=== PATIENT | female | born 1945 | race Caucasian/White ===

== ENCOUNTER → 2017-08-30 | Outpatient (CLI) | payer MEDICARE, OTHER ==
[~2017-08-30] MED LIST: ALBU3IS INH; ATOR20 PO; FLUSAL5005 INH; INSULANPEN; LORA2 PO; METO25ER PO; METPRE4DP PO; MONT10T PO; NAPR220 PO; Omeprazole20 M1; SERT100 PO; SULTRIDS PO; TIOT18 INH; Zithromax250 MG PO
== END | disposition home or self-care (01) ==
LOC: LAB EV 12:19 → LAB SHORT 12:19
DX: N39.0 Urinary tract infection, site not specified (principal); L02.219 Cutaneous abscess of trunk, unspecified
CPT/HCPCS: 87070; 87077; 87086; 87186; 87205

== ENCOUNTER 2018-02-19 08:23 | Emergency (ER) | payer MEDICARE, OTHER ==
[~2018-02-19] VITALS: Ht 162.6 cm; Wt 102.1 kg
[~2018-02-19 08:23] MED LIST changes: +METO25 PO; -METO25ER PO
[2018-02-19 08:45] LABS: BASOPHILS ABSOLUTE AUTO 0.08 K/mm3 (0.00-0.23); BASOPHILS PERCENT AUTO 1 % (0-2); EOSINOPHILS ABSOLUTE AUTO 0.22 K/mm3 (0.00-0.68); EOSINOPHILS PERCENT AUTO 2 % (0-6); Hematocrit 42.6 % (33.0-51.0); Hemoglobin 13.9 g/dL (11.5-16.0); IMMATURE GRAN ABSOLUTE AUTO 0.05 K/mm3 (0.00-0.10); IMMATURE GRAN PERCENT AUTO 0 % (0-1); LYMPHOCYTES ABSOLUTE AUTO 2.83 K/mm3 (0.84-5.20); LYMPHOCYTES PERCENT AUTO 23 % (21-46); MONOCYTES ABSOLUTE AUTO 0.94 K/mm3 (0.16-1.47); MONOCYTES PERCENT AUTO 8 % (4-13); Mean Corpuscular HGB 26.8 pg (26.0-34.0); Mean Corpuscular HGB Conc 32.6 g/dL (31.5-36.5); Mean Corpuscular Volume 82 fL (80-100); Mean Platelet Volume 9.8 fL (9.1-12.4); NEUTROPHILS ABSOLUTE AUTO 8.48 K/mm3 (1.96-9.15); NEUTROPHILS PERCENT AUTO 67 % (41-73); Platelet Count 298 K/mm3 (150-400); RDW Coefficient Variation 13.4 % (11.7-14.2); RDW Standard Deviation 40.2 fL (35.1-46.3); Red Blood Cell Count 5.18 M/mm3 (3.80-5.20)
[2018-02-19] MEDS ORDERED: CLOB.05TO TOP (08:58)
[2018-02-19] MEDS ORDERED: Acetaminophen-1 EAC1 PO (08:58)
[2018-02-19] MEDS ORDERED: METF500C PO (08:59)
[2018-02-19] MEDS ORDERED: NITR100CA PO (08:59)
[2018-02-19] MEDS ORDERED: SERT50 PO (08:59)
[2018-02-19 09:00] LABS: Alanine Aminotransfer (ALT/SGP 22 U/L (12-78); Albumin, Blood 3.1 g/dL (3.4-5.0); Albumin/Globulin Ratio 0.8 (0.8-1.8); Alk Phos 94 U/L (50-136); Anion Gap 8 mmol/L (6-16); Aspartate Aminotrans (AST/SGOT 13 U/L (12-37); Bilirubin, Total 0.4 mg/dL (0.1-1.0); Blood Urea Nitrogen 13 mg/dL (8-24); Bun/Creatinine Ratio 19.4 (12.0-20.0); CO2, Blood 28 mmol/L (21-32); Calcium, Blood 8.6 mg/dL (8.5-10.1); Chloride, Blood 106 mmol/L (98-108); Creatinine, Blood 0.67 mg/dL (0.40-1.00); Globulin, Blood 3.9 g/dL (2.2-4.0); Glomerular Filtration Rate >60 (60-); Glucose, Blood 130 mg/dL (70-99); Potassium, Blood 3.8 mmol/L (3.5-5.5); Sodium, Blood 142 mmol/L (136-145); Troponin I <0.015 ng/mL (0.000-0.040)
[2018-02-19] MEDS ORDERED: Ventolin/Prove6.7 GM INH (09:02)
== END 2018-02-19 12:07 | disposition home or self-care (01) ==
LOC: ER 08:23
PROVIDERS: Emergency Medicine
DX: R07.2 Precordial pain (principal); J98.4 Other disorders of lung; Z88.0 Allergy status to penicillin; Z88.8 Allergy status to other drugs, medicaments and biological substances; Z79.899 Other long term (current) drug therapy; J44.9 Chronic obstructive pulmonary disease, unspecified; E11.9 Type 2 diabetes mellitus without complications; F17.210 Nicotine dependence, cigarettes, uncomplicated
CPT/HCPCS: 71045; 80053; 83880; 84484; 85025; 93005; 93010; 96374; 99284-25; J1170

== ENCOUNTER → 2018-06-11 | Outpatient (CLI) | payer MEDICARE, OTHER ==
[~2018-06-11] MED LIST changes: +Acetaminophen-1 EAC1 PO; +Bupropion Xl150 MG PO; +CEFP200 PO; +CLOB.05TO TOP; +METF500C PO; +METR500 PO; +NITR100CA PO; +PROP10 PO; +SERT50 PO; +Ultram50 MG PO; +Ventolin/Prove6.7 GM INH
[2018-06-11 10:06] LABS: BASOPHILS ABSOLUTE AUTO 0.06 K/mm3 (0.00-0.23); BASOPHILS PERCENT AUTO 1 % (0-2); EOSINOPHILS ABSOLUTE AUTO 0.18 K/mm3 (0.00-0.68); EOSINOPHILS PERCENT AUTO 2 % (0-6); Hematocrit 43.3 % (33.0-51.0); Hemoglobin 14.4 g/dL (11.5-16.0); IMMATURE GRAN ABSOLUTE AUTO 0.04 K/mm3 (0.00-0.10); IMMATURE GRAN PERCENT AUTO 0 % (0-1); LYMPHOCYTES ABSOLUTE AUTO 2.32 K/mm3 (0.84-5.20); LYMPHOCYTES PERCENT AUTO 22 % (21-46); MONOCYTES ABSOLUTE AUTO 0.62 K/mm3 (0.16-1.47); MONOCYTES PERCENT AUTO 6 % (4-13); Mean Corpuscular HGB 26.8 pg (26.0-34.0); Mean Corpuscular HGB Conc 33.3 g/dL (31.5-36.5); Mean Corpuscular Volume 81 fL (80-100); Mean Platelet Volume 9.6 fL (9.1-12.4); NEUTROPHILS PERCENT AUTO 70 % (41-73); Platelet Count 291 K/mm3 (150-400); RDW Coefficient Variation 13.5 % (11.7-14.2); RDW Standard Deviation 39.2 fL (35.1-46.3); Red Blood Cell Count 5.38 M/mm3 (3.80-5.20); White Blood Cell Count 10.62 K/mm3 (4.00-11.30)
[2018-06-11 10:22] LABS: Alanine Aminotransfer (ALT/SGP 19 U/L (12-78); Albumin, Blood 3.1 g/dL (3.4-5.0); Albumin/Globulin Ratio 0.7 (0.8-1.8); Alk Phos 107 U/L (40-126); Anion Gap 8 mmol/L (6-16); Aspartate Aminotrans (AST/SGOT 10 U/L (12-37); Bilirubin, Total 0.3 mg/dL (0.1-1.0); Blood Urea Nitrogen 12 mg/dL (8-24); Bun/Creatinine Ratio 13.6 (12.0-20.0); CO2, Blood 28 mmol/L (21-32); Chloride, Blood 104 mmol/L (98-108); Creatinine, Blood 0.88 mg/dL (0.40-1.00); Globulin, Blood 4.2 g/dL (2.2-4.0); Glomerular Filtration Rate >60 (60-); Glucose, Blood 143 mg/dL (70-99); Potassium, Blood 3.7 mmol/L (3.5-5.5); Sodium, Blood 140 mmol/L (136-145); Total Protein, Blood 7.3 g/dL (6.4-8.2)
== END | disposition home or self-care (01) ==
LOC: LAB SHORT 10:02 → LAB EV 10:02
PROVIDERS: Family Medicine
DX: R10.9 Unspecified abdominal pain (principal)
CPT/HCPCS: 80053; 85025

== ENCOUNTER 2018-06-17 09:33 | Emergency (ER) | payer MEDICARE, OTHER ==
[~2018-06-17] VITALS: Ht 162.6 cm; Wt 102.1 kg
[~2018-06-17 09:33] MED LIST changes: -Bupropion Xl150 MG PO; -CEFP200 PO; -METR500 PO; -PROP10 PO; -Ultram50 MG PO
[2018-06-17] MEDS ORDERED: METR500 PO (09:46)
[2018-06-17] MEDS ORDERED: Bupropion Xl150 MG PO (09:47)
[2018-06-17] MEDS ORDERED: PROP10 PO (09:47)
[2018-06-17 10:20] LABS: BASOPHILS ABSOLUTE AUTO 0.08 K/mm3 (0.00-0.23); BASOPHILS PERCENT AUTO 1 % (0-2); EOSINOPHILS ABSOLUTE AUTO 0.07 K/mm3 (0.00-0.68); EOSINOPHILS PERCENT AUTO 0 % (0-6); Hematocrit 43.2 % (33.0-51.0); Hemoglobin 14.3 g/dL (11.5-16.0); IMMATURE GRAN ABSOLUTE AUTO 0.08 K/mm3 (0.00-0.10); IMMATURE GRAN PERCENT AUTO 1 % (0-1); LYMPHOCYTES ABSOLUTE AUTO 2.86 K/mm3 (0.84-5.20); LYMPHOCYTES PERCENT AUTO 18 % (21-46); MONOCYTES ABSOLUTE AUTO 0.99 K/mm3 (0.16-1.47); MONOCYTES PERCENT AUTO 6 % (4-13); Mean Corpuscular HGB 27.1 pg (26.0-34.0); Mean Corpuscular HGB Conc 33.1 g/dL (31.5-36.5); Mean Corpuscular Volume 82 fL (80-100); Mean Platelet Volume 9.6 fL (9.1-12.4); NEUTROPHILS ABSOLUTE AUTO 11.65 K/mm3 (1.96-9.15); NEUTROPHILS PERCENT AUTO 74 % (41-73); Platelet Count 303 K/mm3 (150-400); RDW Coefficient Variation 13.2 % (11.7-14.2); RDW Standard Deviation 39.2 fL (35.1-46.3); Red Blood Cell Count 5.28 M/mm3 (3.80-5.20); White Blood Cell Count 15.73 K/mm3 (4.00-11.30)
[2018-06-17 10:30] LABS: Alanine Aminotransfer (ALT/SGP 33 U/L (12-78); Albumin, Blood 3.1 g/dL (3.4-5.0); Albumin/Globulin Ratio 0.8 (0.8-1.8); Alk Phos 94 U/L (50-136); Anion Gap 9 mmol/L (6-16); Aspartate Aminotrans (AST/SGOT 24 U/L (12-37); Bilirubin, Total 0.4 mg/dL (0.1-1.0); Blood Urea Nitrogen 12 mg/dL (8-24); Bun/Creatinine Ratio 17.4 (12.0-20.0); CO2, Blood 26 mmol/L (21-32); Calcium, Blood 8.7 mg/dL (8.5-10.1); Chloride, Blood 105 mmol/L (98-108); Creatinine, Blood 0.69 mg/dL (0.40-1.00); Glomerular Filtration Rate >60 (60-); Glucose, Blood 142 mg/dL (70-99); Potassium, Blood 3.6 mmol/L (3.5-5.5); Sodium, Blood 140 mmol/L (136-145); Total Protein, Blood 7.1 g/dL (6.4-8.2)
[2018-06-17 10:40] LABS: Source, Urine Clean Catch
[2018-06-17 10:56] LABS: Appearance, Urine Hazy (Clear); Bilirubin, Urine Neg (Neg); Blood, Urine 5+ (Neg); Color, Urine Yellow (P-Yellow); Glucose Qualitative, Urine Neg (Neg); Ketones, Urine Neg (Neg); Leukocyte Esterase, Urine 1+ (Neg); Nitrite, Urine Neg (Neg); Protein, Urine 1+ (Neg); Specific Gravity, Urine 1.015 (1.003-1.022); Urobilinogen, Urine NORM (Normal)
[2018-06-17 11:54] LABS: Red Blood Cells, Urine 50-100 /hpf (0-2)
[2018-06-17 11:55] LABS: Bacteria Few /hpf; Squamous Epithelial Cells Not Seen /hpf (Few)
[2018-06-17] MEDS ORDERED: CEFP200 PO (12:17)
[2018-06-17] MEDS ORDERED: Ultram50 MG PO (12:17)
== END 2018-06-17 12:32 | disposition home or self-care (01) ==
LOC: ER 09:33
PROVIDERS: Emergency Medicine
DX: R31.9 Hematuria, unspecified (principal); J44.9 Chronic obstructive pulmonary disease, unspecified; E11.9 Type 2 diabetes mellitus without complications; F17.210 Nicotine dependence, cigarettes, uncomplicated; Z79.899 Other long term (current) drug therapy
CPT/HCPCS: 36415; 80053; 81001; 83690; 85025; 87086; 96361; 96374; 96375; 99284-25; J2405; J3010; J7030

== ENCOUNTER 2018-08-07 15:55 | Inpatient (IN) | payer MEDICARE, OTHER ==
[~2018-08-07] VITALS: Ht 162.6 cm; Wt 97.9 kg
[~2018-08-07 15:55] MED LIST changes: -ATOR20 PO; +CEFP200 PO; +METR500 PO; -MONT10T PO; -Omeprazole20 M1; +PROP10 PO; -SERT50 PO; -TIOT18 INH; +Ultram50 MG PO; -Ventolin/Prove6.7 GM INH
[2018-08-07 16:35] LABS: BASOPHILS ABSOLUTE AUTO 0.05 K/mm3 (0.00-0.23); BASOPHILS PERCENT AUTO 0 % (0-2); EOSINOPHILS PERCENT AUTO 0 % (0-6); Hematocrit 44.3 % (33.0-51.0); Hemoglobin 14.7 g/dL (11.5-16.0); IMMATURE GRAN ABSOLUTE AUTO 0.06 K/mm3 (0.00-0.10); IMMATURE GRAN PERCENT AUTO 1 % (0-1); LYMPHOCYTES ABSOLUTE AUTO 1.18 K/mm3 (0.84-5.20); LYMPHOCYTES PERCENT AUTO 9 % (21-46); MONOCYTES ABSOLUTE AUTO 1.27 K/mm3 (0.16-1.47); MONOCYTES PERCENT AUTO 10 % (4-13); Mean Corpuscular HGB 27.1 pg (26.0-34.0); Mean Corpuscular HGB Conc 33.2 g/dL (31.5-36.5); Mean Corpuscular Volume 82 fL (80-100); Mean Platelet Volume 9.5 fL (9.1-12.4); NEUTROPHILS ABSOLUTE AUTO 10.35 K/mm3 (1.96-9.15); NEUTROPHILS PERCENT AUTO 80 % (41-73); Platelet Count 260 K/mm3 (150-400); RDW Coefficient Variation 13.5 % (11.7-14.2); RDW Standard Deviation 40.2 fL (35.1-46.3); Red Blood Cell Count 5.42 M/mm3 (3.80-5.20); White Blood Cell Count 12.91 K/mm3 (4.00-11.30)
[2018-08-07 17:10] LABS: Alanine Aminotransfer (ALT/SGP 23 U/L (12-78); Albumin, Blood 3.4 g/dL (3.4-5.0); Albumin/Globulin Ratio 0.8 (0.8-1.8); Alk Phos 99 U/L (50-136); Anion Gap 9 mmol/L (6-16); Aspartate Aminotrans (AST/SGOT 17 U/L (12-37); Bilirubin, Total 0.7 mg/dL (0.1-1.0); Blood Urea Nitrogen 10 mg/dL (8-24); Bun/Creatinine Ratio 19.8 (12.0-20.0); CO2, Blood 26 mmol/L (21-32); Calcium, Blood 9.1 mg/dL (8.5-10.1); Chloride, Blood 99 mmol/L (98-108); Creatinine, Blood 0.51 mg/dL (0.40-1.00); Globulin, Blood 4.4 g/dL (2.2-4.0); Glomerular Filtration Rate >60 (60-); Glucose, Blood 173 mg/dL (70-99); Potassium, Blood 3.5 mmol/L (3.5-5.5); Sodium, Blood 134 mmol/L (136-145); Total Protein, Blood 7.8 g/dL (6.4-8.2)
[2018-08-07] MEDS ORDERED: **INCOMPLETE MED REC (18:37)
[2018-08-07] MEDS ORDERED: ALBU2.5V5 INH (18:39)
[2018-08-07] MEDS ORDERED: ATOR20 PO (18:41)
[2018-08-07] MEDS ORDERED: Bupropion Xl150 MG PO (18:41)
[2018-08-07] MEDS ORDERED: MONT10T PO (18:43)
[2018-08-07] MEDS ORDERED: Omeprazole20 M1 PO (18:43)
[2018-08-07] MEDS ORDERED: SERT50 PO (18:44)
[2018-08-07] MEDS ORDERED: TIOT18 INH (18:45)
[2018-08-07] MEDS ORDERED: Prinivil10 MG PO (18:48)
[2018-08-07] MEDS ORDERED: FLUT1DIS8 INH (19:11)
[2018-08-07] MEDS ORDERED: Inderal60 MG PO (19:12)
[2018-08-07] MEDS ORDERED: Nyamyc15 GM TOP (19:13)
[2018-08-07] MEDS ORDERED: Aspirin EC81 MG PO (19:14)
[2018-08-07] MEDS ORDERED: LOSARTAN POTAS100 MG PO (19:17)
[2018-08-07] MEDS ORDERED: FLUC150A PO (19:20)
[2018-08-07] MEDS ORDERED: LUMIGAN2.5 ML BOTHEYES (19:43)
--- NOTE | 2018-08-07 20:00 | NUR ---
Initial Visit: Palliative Care Consult for AD/POLST. Pt A&Ox4 and denies pain at this time. She reports her dyspnea has improved and rates severity at 2/7. Engaged in therapeutic conversation about goals of care. Pt reports that she lives at home with her daughter who is supportive of her needs. Pt reports that she is independent at home. She is of Muslim tr. Pt reports that her goal is for her breathing to improve and return to baseline and return home. Discussion was made about AD/POLST and Pt expresses interest in Advanced Directive. Educated Pt on AD in each area to be completed and meaning of life sustaining measures. Pt reports that she will complete AD after discussing with her daughter. Pt reports no other concerns at this time. Plan is to obtain copy of AD once completed. Will remain available
[2018-08-08 05:04] LABS: Hematocrit 40.1 % (33.0-51.0); Hemoglobin 13.3 g/dL (11.5-16.0); Mean Corpuscular HGB 26.9 pg (26.0-34.0); Mean Corpuscular HGB Conc 33.2 g/dL (31.5-36.5); Mean Corpuscular Volume 81 fL (80-100); Platelet Count 219 K/mm3 (150-400); RDW Coefficient Variation 13.5 % (11.7-14.2); RDW Standard Deviation 39.4 fL (35.1-46.3); Red Blood Cell Count 4.94 M/mm3 (3.80-5.20); White Blood Cell Count 7.07 K/mm3 (4.00-11.30)
--- NOTE | 2018-08-08 05:43 | NUR ---
SHIFT SUMMARY PT ADMITTED WITH COPD EXACERBATION, OXYGEN ON AT 2L/NC. PT WEARS O2 AT NIGHT BASELINE. ALERT AND ORIENTED. PT DYSPNEIC AT REST, SPEAKS IN SHORT SENTENCES. LUNG SOUNDS WITH EXP WHEEZING T/O. IVF'S INFUSING PER PUMP WITHOUT DIFFICULTY. PT STATES SHE IS INCONTINENT AT TIMES WITH COUGHING OF BOTH BOWEL AND BLADDER. USING BSC PER SELF. PT SLEPT WELL DURING THE NIGHT. NO ACUTE EVENTS NOTED WILL CONTINUE TO MONITOR.
[2018-08-08 05:46] LABS: Anion Gap 9 mmol/L (6-16); Blood Urea Nitrogen 12 mg/dL (8-24); Bun/Creatinine Ratio 22.5 (12.0-20.0); CO2, Blood 25 mmol/L (21-32); Calcium, Blood 8.6 mg/dL (8.5-10.1); Chloride, Blood 106 mmol/L (98-108); Creatinine, Blood 0.53 mg/dL (0.40-1.00); Glomerular Filtration Rate >60 (60-); Glucose, Blood 171 mg/dL (70-99); Potassium, Blood 3.6 mmol/L (3.5-5.5); Sodium, Blood 140 mmol/L (136-145)
[2018-08-08 11:25] LABS: Source, Urine Clean Catch
[2018-08-08 11:40] LABS: Bilirubin, Urine Neg (Neg); Blood, Urine 2+ (Neg); Glucose Qualitative, Urine Neg (Neg); Ketones, Urine Neg (Neg); Leukocyte Esterase, Urine Neg (Neg); Nitrite, Urine Pos (Neg); Protein, Urine Neg (Neg); Specific Gravity, Urine 1.015 (1.003-1.022); Urobilinogen, Urine NORM (Normal)
[2018-08-08 11:51] LABS: Appearance, Urine Clear (Clear); Color, Urine Yellow (P-Yellow)
[2018-08-08 11:52] LABS: Bacteria Many /hpf; Red Blood Cells, Urine 0-2 /hpf (0-2); Squamous Epithelial Cells Few /hpf (Few); White Blood Cells, Urine 0-2 /hpf (0-5)
--- NOTE | 2018-08-08 16:55 | NUR ---
Per admit trigger, I met with Chloe regarding an advanced directive. She was initially irritated to be "asked about this again." However, I easily gained rapport and she told me about her life. She is and lives with her dtr. She states that her children know what her wishes are and she did not see a need for an AD. She appears chronically ill and admits she's tired of this. Still, she beleives with medication, she will return to baseline. I will remain available.
--- NOTE | 2018-08-08 17:42 | NUR ---
PT IS ALERT AND ORIENTED AND COOPERATIVE WITH CARE. SHE CALLS APPROPRIATELY. SHE EXPERIENCED SOB THIS MORNING WALKING BACK FROM THE BATHROOM. SHE IS ON 3.5L O2 VIA NC. SHE WEARS 2L O2 VIA NC AT HOME. SHE BECOMES INCONTINENT OF BOWEL AND BLADDER WHEN COUGHING. ATTENDS IN PLACE. SHE IS INDEPENDEDNT IN HER ROOM. NO ACUTE CHANGES THIS SHIFT. WILL CONTINUE TO MONITOR.
--- NOTE | 2018-08-09 05:32 | NUR ---
SHIFT SUMMARY PT SLEPT WELL T/O THE NIGHT. DENIES C/O'S PAIN. OXYGEN REMAINS ON PER NC AT 2L. PT DYSPNEIC THIS AM, RT NOTIFIED AND PRN BREATHING TREATMENT GIVEN. NO ACUTE EVENTS DURING THE NIGHT, WILL CONTINUE TO MONITOR.
--- NOTE | 2018-08-09 09:07 | NUR ---
ASSUMED CARE OF PT- BEDSIDE REPORT COMPLETE WITH NIGHT YOLANDE GREEN. PT ALERT AND ORIENTED AND INDEMENDENT IN THE ROOM PER REPORT. SPOKE TO PT SHE SAT TRIPOD ON THE EOB BREATHING HEAVILY, SHE STATED SHE WAS PREPARING TO GO TO THE BATHROOM. SPOKE TO HER ABOUT THE RISK OF FALLING IF SHE WALKED TOO FAR AND BECAME SOB AND GOT LIGHT HEADED, PT WILLING TO USE BEDSIDE COMODE, FOR SAFETY. SPOKE TO DR CASTREJON ABOUT PT EXTREME SOB AND THE EVENT PREVIOUSLY DESCRIBED, HE IS SEEING THE PT NOW.
--- NOTE | 2018-08-09 19:48 | NUR ---
SHIFT SUMMARY- PT STILL SHORT OF BREATH, SHE HAS HAD MULTIPLE BREATHING Tx T/O THE SHIFT. WHEN PT IS SLEEPING HER RESP RATE IS 24. PT CAN NOT SPEAK A SENTENCE WITHOUT PAUSING FOR SEVERAL BREATHS. BEDISDE REPORT COMPLETE WITH NIGHT RN MUSTAPHA. PT STATED DURRING REPORT SHE IS STARTING TO GET CRANKY AND MAY NEED A DOSE OF PRN ATIVAN. PT HAS HER CALL LIGHT IN REACH SHE IS INDEPENDENT TO THE BSC AND THE CHAIR, D/T SOB STAFF HAVE ADVISED HER TO ALLOW FOR ADEQUATE REST PERIODS OR WALKING SHORTER DISTANCES UNTIL SHE IS FEELING LESS SOB. PT AGREED AND HAS BEEN USEING THE BSC T/O THE SHIFT.
--- NOTE | 2018-08-10 00:23 | NUR ---
RESPIRATORY PANEL COLLECTED AND SENT TO LAB
[2018-08-10 02:44] LABS: Adenovirus Not Detected (NOT DETECT); Bordetella pertussis Not Detected (NOT DETECT); Chlamydophila pneumoniae Not Detected (NOT DETECT); Coronavirus 229E Not Detected (NOT DETECT); Coronavirus HKU1 Not Detected (NOT DETECT); Coronavirus NL63 Not Detected (NOT DETECT); Coronavirus OC43 Not Detected (NOT DETECT); Human Metapneumovirus Not Detected (NOT DETECT); Human Rhinovirus/Enterovirus Not Detected (NOT DETECT); Influenza A Not Detected (NOT DETECT); Influenza A/2009-H1 Not Detected (NOT DETECT); Influenza A/H1 Not Detected (NOT DETECT); Influenza A/H3 Detected (NOT DETECT); Influenza B Not Detected (NOT DETECT); Mycoplasma pneumoniae Not Detected (NOT DETECT); Parainfluenza Virus 1 Not Detected (NOT DETECT); Parainfluenza Virus 2 Not Detected (NOT DETECT); Parainfluenza Virus 3 Not Detected (NOT DETECT); Parainfluenza Virus 4 Not Detected (NOT DETECT); Respiratory Syncytial Virus Not Detected (NOT DETECT)
--- NOTE | 2018-08-10 04:35 | NUR ---
SHIFT SUMMARY PATIENT HAD NO ACUTE CHANGES OBSERVED THIS SHIFT. AXO X 4 AND INDEPENDENT IN THE ROOM. PATIENT HAD COUGHING EVENT AND TYLENOL #3 GIVEN PER EMAR. PATIENT REPORTS REDUCED COUGH. IV SOLU-MEDROL GIVEN PER EMAR. BREATHING TX BY RT. PIV REMAINS INTACT. RESPIRATORY PANEL SENT TO LAB AND POSITIVE FOR INFLUENZA, DROPLET PRECAUTIONS. ON 2L O2 NC. CBG 219. CALL LIGHT IN REACH. BED IN LOWEST POSITION. WILL CONTINUE TO MONITOR UNTIL DAY SHIFT NURSE ASSUMES CARE.
[2018-08-10 05:04] LABS: BASOPHILS ABSOLUTE AUTO 0.02 K/mm3 (0.00-0.23); BASOPHILS PERCENT AUTO 0 % (0-2); EOSINOPHILS ABSOLUTE AUTO 0.01 K/mm3 (0.00-0.68); EOSINOPHILS PERCENT AUTO 0 % (0-6); Hematocrit 41.1 % (33.0-51.0); Hemoglobin 13.2 g/dL (11.5-16.0); IMMATURE GRAN ABSOLUTE AUTO 0.11 K/mm3 (0.00-0.10); IMMATURE GRAN PERCENT AUTO 1 % (0-1); LYMPHOCYTES ABSOLUTE AUTO 0.66 K/mm3 (0.84-5.20); LYMPHOCYTES PERCENT AUTO 6 % (21-46); MONOCYTES ABSOLUTE AUTO 0.34 K/mm3 (0.16-1.47); MONOCYTES PERCENT AUTO 3 % (4-13); Mean Corpuscular HGB 27.2 pg (26.0-34.0); Mean Corpuscular HGB Conc 32.1 g/dL (31.5-36.5); Mean Platelet Volume 9.7 fL (9.1-12.4); NEUTROPHILS ABSOLUTE AUTO 10.28 K/mm3 (1.96-9.15); NEUTROPHILS PERCENT AUTO 90 % (41-73); Platelet Count 210 K/mm3 (150-400); RDW Coefficient Variation 13.6 % (11.7-14.2); RDW Standard Deviation 42.1 fL (35.1-46.3); Red Blood Cell Count 4.86 M/mm3 (3.80-5.20); White Blood Cell Count 11.42 K/mm3 (4.00-11.30)
[2018-08-10 05:06] LABS: Mean Corpuscular Volume 85 fL (80-100)
[2018-08-10 05:11] LABS: Alanine Aminotransfer (ALT/SGP 22 U/L (12-78); Albumin, Blood 2.9 g/dL (3.4-5.0); Albumin/Globulin Ratio 0.8 (0.8-1.8); Alk Phos 70 U/L (50-136); Anion Gap 7 mmol/L (6-16); Aspartate Aminotrans (AST/SGOT 16 U/L (12-37); Bilirubin, Total 0.3 mg/dL (0.1-1.0); Blood Urea Nitrogen 16 mg/dL (8-24); Bun/Creatinine Ratio 26.9 (12.0-20.0); CO2, Blood 26 mmol/L (21-32); Calcium, Blood 8.5 mg/dL (8.5-10.1); Chloride, Blood 106 mmol/L (98-108); Globulin, Blood 3.6 g/dL (2.2-4.0); Glomerular Filtration Rate >60 (60-); Glucose, Blood 223 mg/dL (70-99); Magnesium, Blood 2.2 mg/dL (1.6-2.4); Phosphorus, Blood 3.5 mg/dL (2.5-4.9); Potassium, Blood 3.5 mmol/L (3.5-5.5); Sodium, Blood 139 mmol/L (136-145); Total Protein, Blood 6.5 g/dL (6.4-8.2)
--- NOTE | 2018-08-10 19:23 | NUR ---
SHIFT SUMMARY- PT HAS SHOWN SOME IMPROVEMENT TODAY, SHE IS MORE MOBILE AND ABLE TO DO MORE PHYSICALLY WITHOUT GETTING BADLY WINDED YESTERDAY. PT HAD A FULL SHOWER WITH ASSISTANCE FROM THE SEMIAUTOMATIC TAPER OPERATOR. PT IN ISOLATION FOR FLU, SPOKE TO DR RUIZ STARTED TODAY TWICE A DAY FOR FIVE DAYS. SOLUMEDROL REDUCED TO TWICE A DAY. PT STILL VERY SHAKEY, BREATHING Tx RECIEVED T/O THE SHIFT. PT HAS HER CALL LIGHT IN REACH AND CALLS APPROPRIATELY. MEDICATED FOR COUGH WITH TYLENOL 3 JUST BEFORE SHIFT CHANGE.
--- NOTE | 2018-08-11 04:39 | NUR ---
SHIFT SUMMARY PATIENT HAD NO ACUTE CHANGES OBSERVED THIS SHIFT. AXO X4 AND ONE ASSIST TO BR AND INDEPENDENT AROUND BEDSIDE. ON 2L O2 NC. DENIES PAIN AND N/V. PATIENT REPORTS FEELING BETTER THIS SHIFT. CBG 252. BREATHING TX BY RT X2. NIZORAL TOPICAL CREME APPLIED TO PANNUS. PATIENT REPORTS SHE DID NOT WANT ATIVAN THIS SHIFT. TAKES MEDICATION WHOLE WITH WATER. CALL LIGHT IN REACH. BED IN LOWEST POSITION. WILL CONTINUE TO MONITOR UNTIL DAY SHIFT NURSE ASSUMES CARE.
--- NOTE | 2018-08-11 08:25 | NUR ---
PT BP WAS ELEVATED ON MORNING VITALS, GAVE MORNING BP MEDS EARLY WILL REASSESS AND CALL DR WITH RESULT FROM 0900 VITALS.
--- NOTE | 2018-08-11 18:45 | NUR ---
SHIFT SUMMARY- PT HAD AN EVENT THIS EVENING AT [facility], HEART WAS RACING IN THE 140S-150S, CALLED LUCÍA AND RECIEVED AN ORDER FOR TELE. PT PLACED ON TELE AND BACK INTO BED RATE AFIB IN THE 130'S ON AVERAGE. EKG DONE SHOWED AFIB WITH RVR. DR CASTREJON PLACED ORDER FOR STAT 30MG CARDIZEM AND DIGOXIN PB, CHANGED SCHEDULED DOSE OF CARDIZEM TO 120MG BID THIS PUT THE DOSE OF THIS AT THE SAME TIME ALL THE OTHER CARDIAC MEDS. GAVE STAT 30MG PO CARDIZEM AND HUNG DIGOXIN PER DR FRANKEL WAITED 30 MINUTES AND MEDICATED WITH THE SCHEDULED DOSE OF 120MG CARDIZEM. PER PCU DAY HABILITATION SPECIALIST KUSH PT HR IS AFIB AT 122 NOW. WILL PASS THIS ON IN BEDSIDE REPORT.
--- NOTE | 2018-08-11 22:21 | NUR ---
PATIENT REPORTS FEELING BETTER. SPINDLE TESTER REPORTS AFIB 94 DOWN FROM HR 120-130 RIGHT BEFORE SHIFT CHANGE. PATIENT REPORTS TREMORS IN CHEST RESOLVED FROM EVENT. CALL LIGHT IN REACH.
--- NOTE | 2018-08-12 04:00 | NUR ---
SHIFT SUMMARY SOLE RUFFER REPORTS AFIB 88 DOWN FROM AFIB 94 AT START OF SHIFT. PATIENT HAD NO ACUTE EVENTS SINCE BEFORE SHIFT CHANGE. AXO X4 AND INDEPENDENT AROUND BED AND ONE ASSIST TO BR. CBG 232. ON 2L O2 NC. PIV REMAINS INTACT. SOLU-MEDROL GIVEN PER EMAR. BREATHING TX BY RT. PATIENT REPORTS FEELING BETTER SINCE EVENT, WITH RESOLVED CHEST TREMORS. SEE DAY SHIFT SUMMARY NOTE. DROPLET PRECAUTIONS. CALL LIGHT IN REACH. BED IN LOWEST POSITION. WILL CONTINUE TO MONITOR UNTIL DAY SHIFT NURSE ASSUMES CARE.
[2018-08-12 05:31] LABS: BASOPHILS ABSOLUTE AUTO 0.02 K/mm3 (0.00-0.23); BASOPHILS PERCENT AUTO 0 % (0-2); EOSINOPHILS PERCENT AUTO 0 % (0-6); Hematocrit 44.7 % (33.0-51.0); Hemoglobin 14.4 g/dL (11.5-16.0); IMMATURE GRAN ABSOLUTE AUTO 0.15 K/mm3 (0.00-0.10); IMMATURE GRAN PERCENT AUTO 1 % (0-1); LYMPHOCYTES ABSOLUTE AUTO 1.18 K/mm3 (0.84-5.20); LYMPHOCYTES PERCENT AUTO 9 % (21-46); MONOCYTES ABSOLUTE AUTO 0.59 K/mm3 (0.16-1.47); MONOCYTES PERCENT AUTO 5 % (4-13); Mean Corpuscular HGB 26.7 pg (26.0-34.0); Mean Corpuscular HGB Conc 32.2 g/dL (31.5-36.5); Mean Corpuscular Volume 83 fL (80-100); Mean Platelet Volume 10.1 fL (9.1-12.4); NEUTROPHILS ABSOLUTE AUTO 10.78 K/mm3 (1.96-9.15); NEUTROPHILS PERCENT AUTO 85 % (41-73); Platelet Count 258 K/mm3 (150-400); RDW Coefficient Variation 13.4 % (11.7-14.2); RDW Standard Deviation 40.6 fL (35.1-46.3); Red Blood Cell Count 5.39 M/mm3 (3.80-5.20); White Blood Cell Count 12.72 K/mm3 (4.00-11.30)
[2018-08-12 05:46] LABS: Alanine Aminotransfer (ALT/SGP 27 U/L (12-78); Albumin, Blood 2.9 g/dL (3.4-5.0); Anion Gap 6 mmol/L (6-16); Aspartate Aminotrans (AST/SGOT 10 U/L (12-37); Blood Urea Nitrogen 13 mg/dL (8-24); Bun/Creatinine Ratio 24.6 (12.0-20.0); CO2, Blood 29 mmol/L (21-32); Calcium, Blood 8.2 mg/dL (8.5-10.1); Chloride, Blood 104 mmol/L (98-108); Creatinine, Blood 0.53 mg/dL (0.40-1.00); Glomerular Filtration Rate >60 (60-); Glucose, Blood 225 mg/dL (70-99); Magnesium, Blood 2.3 mg/dL (1.6-2.4); Phosphorus, Blood 2.7 mg/dL (2.5-4.9); Potassium, Blood 3.5 mmol/L (3.5-5.5); Sodium, Blood 139 mmol/L (136-145)
[2018-08-12 05:48] LABS: Albumin/Globulin Ratio 0.8 (0.8-1.8); Alk Phos 68 U/L (50-136); Bilirubin, Total 0.4 mg/dL (0.1-1.0); Globulin, Blood 3.5 g/dL (2.2-4.0); Total Protein, Blood 6.4 g/dL (6.4-8.2)
--- NOTE | 2018-08-12 09:00 | NUR ---
PT PLEASANT A/O SITTING IN BED. DENIES PAIN. H/R IRREGULAR, NO MURMER NOTED. PER TELE: AFIB AT AVERAGING 106. LUNGS COARSE AND WHEEZY T/O. ON 2L 02. RESP EASY UNLABORED. BT HYPO. LAST BM 3-4 DAYS. VOIDS PER BATHROOM. SBA IN ROOM. BED IN LOW POSITION, CALL LITE IN REACH, CALLS APPROP
--- NOTE | 2018-08-12 11:27 | NUR ---
PERMISSION FOR CARE PT GAVE THIS MEAT STRINGER PERMISSION TO PROVIDE CARE 08/12/18.
--- NOTE | 2018-08-12 19:17 | NUR ---
pt pleasant today denies pain. has had family in to see today. lungs coarse and wheezy today. pt states feeling better slowly . no other concerna at this froilan. bed in low position, call lite in reach. calls approp
--- NOTE | 2018-08-13 05:50 | NUR ---
*SHIFT SUMMARY* PT IS ALERT AND ORIENTED. PT ON TELE A-FIB 60-80BPM PER LIFE TRAINER AT 0540 THIS AM. PATIENT ON 2LNC. SBA TO BSC. PATIENT FELL ASLEEP AROUND 2100 AND STATED SHE WANTED TO SLEEP. PT REFUSED BREATHING TX LATER IN THE NIGHT. USES CALL LIGHT APPROPRIATELY. BED LOWERED AND LOCKED. VITALS STABLE.
--- NOTE | 2018-08-13 17:26 | NUR ---
PT IS ALERT AND ORIENTED AND COOPERATIVE WITH CARE. SHE CALLS APPROPRIATELY. SHE IS A ONE PERSON ASSIST TO THE RESTROOM. SHE TRANSFERS TO THE BSC INDEPENDENTLY. SHE REPORTS LESS SOB TODAY THAN BEFORE. SHE IS ON DROPLET PRECAUTIONS FOR INFLUENZA A. NO ACUTE CHANGES TODAY. WILL CONTINUE TO MONITOR.
--- NOTE | 2018-08-14 05:35 | NUR ---
SHIFT SUMMARY NO ACUTE CHANGES THIS SHIFT. PT REPORTS THAT SHE IS AT HER BASELINE FOR RESPIRATORY STATUS AND THAT SHE CONTINUES TO HAVE SOME MILD SOB BUT THAT THIS IS NORMAL FOR HER. PT REPORTS THAT SHE REMAINS HERE WAITING TO BE CONSULTED BY CARDIOLOGY DUE TO NEW AFIB. PT ON TELEMETRY, AFIB IN THE 80'S THIS EVENING. SOME REDNESS UNDER PANNUS, CREAM APPLIED. PT REPORTS SHE HAS NOT HAD A BOWEL MOVEMENT SINCE HER ADMISSION TO THE HOSPITAL, APPROX 5-6 DAYS. SHE FEELS THOUGH SHE WILL BE ABLE TO HAVE ONE SOON. PT DENIES PAIN OR DISCOMFORT. SLEPT WELL WHEN NOT BEING WOKEN BY STAFF. VSS. WILL CONTINUE TO MONITOR AND REPORT TO DAY RN.
--- NOTE | 2018-08-14 09:32 | NUR ---
PATIENT WAS OFFERED A SHOWER AND DECLINED SHE TOOK ONE YESTERDAY WELL SHE IS WAITING TO SEE IF SHE IS ABLE TO GO HOME TODAY AND WILL TAKE A BATH WHEN SHE GETS HOME.
--- NOTE | 2018-08-14 11:14 | NUR ---
CARDIOLOGY CONSULT CALLED IN WITH DR. MELCHOR TODAY AT 1030 08/14/[address] SOLIMAN.
[2018-08-14] MEDS ORDERED: OSEL75CA PO (13:20)
[2018-08-14] MEDS ORDERED: ELIQUIS5 MG PO (13:20)
[2018-08-14] MEDS ORDERED: DILT120 PO (13:20)
[2018-08-14] MEDS ORDERED: GLIP5 PO (13:21)
[2018-08-14] MEDS ORDERED: METPRE2 PO (13:22)
[2018-08-14] MEDS ORDERED: DOXY100 PO (13:23)
--- NOTE | 2018-08-14 14:03 | NUR ---
RN WALKED WITH PATIENT AROUND THE HOSPITAL ROOM WHILE MONITORING HER OXYGEN SATURATION WITHOUT WEARING OXYGEN. HER SATS REMAINED BETWEEN 89-92%. RESPIRATORY THERAPY CONTACTED, AND DETERMINED HOME O2 CONSULTATION IS NOT NEEDED. IV REMOVED FROM PT'S RIGHT ARM, PRESSURE HELD FOR 5 MINUTES, AND WRAPPED WITH GAUZE AND COBAND. PT ASSISTED TO AUTOMOBILE BY WHEELCHAIR. PT DRIVEN HOME BY HER DAUGHTER. PT DISCHARGED AT 1350 ON 08/14/18.
--- NOTE | 2018-08-14 15:20 | NUR ---
RESPIRATORY THERAPY REQUESTED FOR HOME 02 EVAL TO BE DC'D DUE TO RN AT BEDSIDE COMPLETING AN EVALUATION WHERE PT SATS STAYED ABOVED 89% WITH EXERTION AND DOES NOT QUALIFY. HOME 02 EVAL NOT COMPLETED.
== END 2018-08-14 13:54 | disposition home or self-care (01) | DRG 871 ==
LOC: ER 15:55 → MEDS 18:32
PROVIDERS: Hospitalist; Nurse Practitioner Acute Care; Physician Assistant; ADMIT Hospitalist
DX: A41.89 Other specified sepsis (principal); J96.21 Acute and chronic respiratory failure with hypoxia; J44.1 Chronic obstructive pulmonary disease with (acute) exacerbation; B37.89 Other sites of candidiasis; I50.32 Chronic diastolic (congestive) heart failure; J09.X2 Influenza due to identified novel influenza A virus with other respiratory manifestations; J20.8 Acute bronchitis due to other specified organisms; J45.909 Unspecified asthma, uncomplicated; E11.9 Type 2 diabetes mellitus without complications; Z79.4 Long term (current) use of insulin; K21.9 Gastro-esophageal reflux disease without esophagitis; F32.9 Major depressive disorder, single episode, unspecified; Z87.440 Personal history of urinary (tract) infections; F17.210 Nicotine dependence, cigarettes, uncomplicated; I11.0 Hypertensive heart disease with heart failure; I48.2 Chronic atrial fibrillation; Z79.01 Long term (current) use of anticoagulants
CPT/HCPCS: 36415; 71046; 80048; 80053; 81001; 82947; 83036; 83605; 83735; 83880; 84100; 84145; 85025; 85027; 87040; 87077; 87086; 87186; 87486; 87581; 87633; 87798; 93005; 93010; 93306; 94640; 94644; 94760; 96374; 96375; 99285-25; J0456; J0696; J1160; J1650; J1940; J2920; J2930; J3480; J7030; J7050

== ENCOUNTER 2018-09-25 05:46 | Day surgery (SDC) | payer MEDICARE, OTHER ==
[~2018-09-25] VITALS: Ht 165.1 cm; Wt 98.0 kg
[~2018-09-25 05:46] MED LIST changes: +**INCOMPLETE MED REC; +ALBU2.5V5 INH; +ATOR20 PO; +Aspirin EC81 MG PO; +Bupropion Xl150 MG PO; +DILT120 PO; +DOXY100 PO; +ELIQUIS5 MG PO; +FLUC150A PO; +FLUT1DIS8 INH; +GLIP5 PO; +Inderal60 MG PO; +LOSARTAN POTAS100 MG PO; +LUMIGAN2.5 ML BOTHEYES; +METPRE2 PO; +MONT10T PO; +Nyamyc15 GM TOP; +OSEL75CA PO; +Omeprazole20 M1 PO; +Prinivil10 MG PO; +SERT50 PO; +TIOT18 INH
--- NOTE | 2018-09-25 07:31 | NUR ---
PT TOLERATES CARDIOVERSION WELL. VSS. NADN. PT AND DAUGHTER VERBALIZES UNDERSTANDING WRITTEN AND VERBAL ORDERS. PT WILL DC TO HOME VIA WC BY ESCORT. PT SINUS RHTYHM ON MONITOR.
== END 2018-09-25 08:00 | disposition home or self-care (01) ==
LOC: MHTC 05:46
DX: I48.1 Persistent atrial fibrillation (principal); J44.9 Chronic obstructive pulmonary disease, unspecified; I10 Essential (primary) hypertension; E11.9 Type 2 diabetes mellitus without complications; E78.00 Pure hypercholesterolemia, unspecified; F17.210 Nicotine dependence, cigarettes, uncomplicated; Z88.1 Allergy status to other antibiotic agents; Z88.8 Allergy status to other drugs, medicaments and biological substances; Z79.899 Other long term (current) drug therapy; Z79.02 Long term (current) use of antithrombotics/antiplatelets
CPT/HCPCS: 92960; 93005; 93010; 99152; J2250; J3010; J7040

== ENCOUNTER 2018-11-01 12:49 | Emergency (ER) | payer MEDICARE, OTHER ==
[~2018-11-01] VITALS: Ht 162.6 cm; Wt 98.9 kg
[2018-11-01] MEDS ORDERED: Amiodarone HCl200 MG PO (13:08)
[2018-11-01 13:46] LABS: BASOPHILS ABSOLUTE AUTO 0.08 K/mm3 (0.00-0.23); BASOPHILS PERCENT AUTO 1 % (0-2); EOSINOPHILS PERCENT AUTO 2 % (0-6); Hematocrit 38.8 % (33.0-51.0); Hemoglobin 12.1 g/dL (11.5-16.0); IMMATURE GRAN ABSOLUTE AUTO 0.04 K/mm3 (0.00-0.10); IMMATURE GRAN PERCENT AUTO 0 % (0-1); LYMPHOCYTES ABSOLUTE AUTO 2.38 K/mm3 (0.84-5.20); LYMPHOCYTES PERCENT AUTO 22 % (21-46); MONOCYTES ABSOLUTE AUTO 0.76 K/mm3 (0.16-1.47); MONOCYTES PERCENT AUTO 7 % (4-13); Mean Corpuscular HGB 26.9 pg (26.0-34.0); Mean Corpuscular HGB Conc 31.2 g/dL (31.5-36.5); Mean Corpuscular Volume 86 fL (80-100); Mean Platelet Volume 9.4 fL (9.1-12.4); NEUTROPHILS ABSOLUTE AUTO 7.37 K/mm3 (1.96-9.15); NEUTROPHILS PERCENT AUTO 68 % (41-73); Platelet Count 290 K/mm3 (150-400); RDW Coefficient Variation 14.6 % (11.7-14.2); RDW Standard Deviation 46.9 fL (35.1-46.3); Red Blood Cell Count 4.49 M/mm3 (3.80-5.20); White Blood Cell Count 10.83 K/mm3 (4.00-11.30)
[2018-11-01 14:13] LABS: Alanine Aminotransfer (ALT/SGP 18 U/L (12-78); Albumin/Globulin Ratio 0.9 (0.8-1.8); Alk Phos 87 U/L (50-136); Anion Gap 6 mmol/L (6-16); Aspartate Aminotrans (AST/SGOT 6 U/L (12-37); Bilirubin, Total 0.3 mg/dL (0.1-1.0); Blood Urea Nitrogen 12 mg/dL (8-24); Bun/Creatinine Ratio 18.6 (12.0-20.0); CO2, Blood 26 mmol/L (21-32); Calcium, Blood 8.5 mg/dL (8.5-10.1); Chloride, Blood 111 mmol/L (98-108); Creatinine, Blood 0.65 mg/dL (0.40-1.00); Globulin, Blood 3.4 g/dL (2.2-4.0); Glomerular Filtration Rate >60 (60-); Glucose, Blood 124 mg/dL (70-99); Potassium, Blood 3.7 mmol/L (3.5-5.5); Sodium, Blood 143 mmol/L (136-145); Total Protein, Blood 6.4 g/dL (6.4-8.2); Troponin I <0.015 ng/mL (0.000-0.040)
== END 2018-11-01 15:17 | disposition home or self-care (01) ==
LOC: ER 12:49
PROVIDERS: Emergency Medicine
DX: I48.91 Unspecified atrial fibrillation (principal); Z88.0 Allergy status to penicillin; Z88.1 Allergy status to other antibiotic agents; Z88.8 Allergy status to other drugs, medicaments and biological substances; Z79.899 Other long term (current) drug therapy; J44.9 Chronic obstructive pulmonary disease, unspecified; E11.9 Type 2 diabetes mellitus without complications; F17.210 Nicotine dependence, cigarettes, uncomplicated
CPT/HCPCS: 80053; 84484; 85025; 93005; 93010; 93225; 93226; 99284-25

== ENCOUNTER 2019-05-07 10:32 | Day surgery (SDC) | payer MEDICARE, OTHER ==
[~2019-05-07] VITALS: Ht 162.6 cm; Wt 97.8 kg
[~2019-05-07 10:32] MED LIST changes: +Amiodarone HCl200 MG PO; +Catapres-Tts 11 EACH; +Flecainide Ace150 MG
--- NOTE | 2019-05-07 12:44 | NUR ---
05/07/19 1244 ALLEY PASCAL 1 POKE UPPER RIGHT ARM VALVE 2 TRY AC VALVE RIGHT ARM 3 TRY GOOD LEFT AC
== END 2019-05-07 14:01 | disposition home or self-care (01) ==
LOC: ORSCSDS 10:32
PROVIDERS: Internal Medicine Gastroenterology
PROC: 0DBH8ZX Excision of Cecum, Via Natural or Artificial Opening Endoscopic, Diagnostic (ICD-10-PCS; principal; 2019-05-07 12:45)
PROC: 0DBN8ZX Excision of Sigmoid Colon, Via Natural or Artificial Opening Endoscopic, Diagnostic (ICD-10-PCS; principal; 2019-05-07 12:45)
PROC: 0DBK8ZX Excision of Ascending Colon, Via Natural or Artificial Opening Endoscopic, Diagnostic (ICD-10-PCS; principal; 2019-05-07 12:45)
PROC: 0DBL8ZX Excision of Transverse Colon, Via Natural or Artificial Opening Endoscopic, Diagnostic (ICD-10-PCS; principal; 2019-05-07 12:45)
DX: Z12.11 Encounter for screening for malignant neoplasm of colon (principal); Z86.010 Personal history of colon polyps; D12.3 Benign neoplasm of transverse colon; D12.0 Benign neoplasm of cecum; D12.2 Benign neoplasm of ascending colon; K63.5 Polyp of colon; K64.8 Other hemorrhoids; K64.4 Residual hemorrhoidal skin tags; I10 Essential (primary) hypertension; E11.9 Type 2 diabetes mellitus without complications; E78.5 Hyperlipidemia, unspecified; J44.9 Chronic obstructive pulmonary disease, unspecified; G47.33 Obstructive sleep apnea (adult) (pediatric); F17.210 Nicotine dependence, cigarettes, uncomplicated; E66.01 Morbid (severe) obesity due to excess calories; Z68.36 Body mass index [BMI] 36.0-36.9, adult; Z79.899 Other long term (current) drug therapy
CPT/HCPCS: 82947; 88305; J2001; J2704

== ENCOUNTER → 2019-07-07 | Outpatient (CLI) | payer MEDICARE, OTHER | END | disposition home or self-care (01) | LOC: LAB SHORT 11:05 → LAB EV 11:05 | DX: R30.0 Dysuria (principal) | CPT/HCPCS: 87086 ==

== ENCOUNTER 2019-07-30 10:24 | Inpatient (IN) | payer MEDICARE, OTHER ==
[~2019-07-30] VITALS: Ht 162.6 cm; Wt 95.0 kg
[~2019-07-30 10:24] MED LIST changes: -Flecainide Ace150 MG; +Flecainide Ace150 MG PO; -SERT50 PO
[2019-07-30 11:10] LABS: PCO2 Arterial 35.8 mmHg (35-45); PO2 Arterial 81.1 mmHg (80-100); pH Blood Arterial 7.46 (7.35-7.45)
[2019-07-30 11:13] LABS: BASOPHILS ABSOLUTE AUTO 0.07 K/mm3 (0.00-0.23); BASOPHILS PERCENT AUTO 1 % (0-2); EOSINOPHILS ABSOLUTE AUTO 0.15 K/mm3 (0.00-0.68); EOSINOPHILS PERCENT AUTO 1 % (0-6); Hemoglobin 13.4 g/dL (11.5-16.0); IMMATURE GRAN ABSOLUTE AUTO 0.07 K/mm3 (0.00-0.10); IMMATURE GRAN PERCENT AUTO 1 % (0-1); LYMPHOCYTES ABSOLUTE AUTO 2.29 K/mm3 (0.84-5.20); LYMPHOCYTES PERCENT AUTO 19 % (21-46); MONOCYTES ABSOLUTE AUTO 0.74 K/mm3 (0.16-1.47); MONOCYTES PERCENT AUTO 6 % (4-13); Mean Corpuscular HGB 26.1 pg (26.0-34.0); Mean Corpuscular HGB Conc 32.7 g/dL (31.5-36.5); Mean Corpuscular Volume 80 fL (80-100); Mean Platelet Volume 9.6 fL (9.1-12.4); NEUTROPHILS ABSOLUTE AUTO 9.03 K/mm3 (1.96-9.15); NEUTROPHILS PERCENT AUTO 73 % (41-73); Platelet Count 275 K/mm3 (150-400); RDW Standard Deviation 43.6 fL (35.1-46.3); Red Blood Cell Count 5.13 M/mm3 (3.80-5.20); White Blood Cell Count 12.35 K/mm3 (4.00-11.30)
[2019-07-30] MEDS ORDERED: CLON.1 PO (11:25)
[2019-07-30 11:39] LABS: Alanine Aminotransfer (ALT/SGP 17 U/L (12-78); Albumin, Blood 3.2 g/dL (3.4-5.0); Albumin/Globulin Ratio 0.7 (0.8-1.8); Alk Phos 101 U/L (50-136); Anion Gap 3 mmol/L (6-16); Aspartate Aminotrans (AST/SGOT 20 U/L (12-37); Bilirubin, Total 0.4 mg/dL (0.1-1.0); Blood Urea Nitrogen 10 mg/dL (8-24); Bun/Creatinine Ratio 16.7 (12.0-20.0); CO2, Blood 27 mmol/L (21-32); Calcium, Blood 9.1 mg/dL (8.5-10.1); Chloride, Blood 110 mmol/L (98-108); Globulin, Blood 4.3 g/dL (2.2-4.0); Glomerular Filtration Rate >60 (60-); Glucose, Blood 110 mg/dL (70-99); Potassium, Blood 4.2 mmol/L (3.5-5.5); Sodium, Blood 140 mmol/L (136-145); Total Protein, Blood 7.5 g/dL (6.4-8.2)
[2019-07-30 13:37] LABS: Adenovirus Not Detected (NOT DETECT); Bordetella pertussis Not Detected (NOT DETECT); Chlamydophila pneumoniae Not Detected (NOT DETECT); Coronavirus 229E Not Detected (NOT DETECT); Coronavirus HKU1 Not Detected (NOT DETECT); Coronavirus NL63 Not Detected (NOT DETECT); Coronavirus OC43 Not Detected (NOT DETECT); Human Metapneumovirus Not Detected (NOT DETECT); Human Rhinovirus/Enterovirus Not Detected (NOT DETECT); Influenza A Not Detected (NOT DETECT); Influenza A/2009-H1 Not Detected (NOT DETECT); Influenza A/H1 Not Detected (NOT DETECT); Influenza A/H3 Not Detected (NOT DETECT); Influenza B Not Detected (NOT DETECT); Mycoplasma pneumoniae Not Detected (NOT DETECT); Parainfluenza Virus 1 Not Detected (NOT DETECT); Parainfluenza Virus 2 Not Detected (NOT DETECT); Parainfluenza Virus 3 Not Detected (NOT DETECT); Parainfluenza Virus 4 Not Detected (NOT DETECT); Respiratory Syncytial Virus Not Detected (NOT DETECT)
[2019-07-31 05:07] LABS: BASOPHILS ABSOLUTE AUTO 0.01 K/mm3 (0.00-0.23); BASOPHILS PERCENT AUTO 0 % (0-2); EOSINOPHILS PERCENT AUTO 0 % (0-6); Hemoglobin 12.5 g/dL (11.5-16.0); IMMATURE GRAN ABSOLUTE AUTO 0.13 K/mm3 (0.00-0.10); IMMATURE GRAN PERCENT AUTO 1 % (0-1); LYMPHOCYTES ABSOLUTE AUTO 0.91 K/mm3 (0.84-5.20); LYMPHOCYTES PERCENT AUTO 6 % (21-46); MONOCYTES ABSOLUTE AUTO 0.31 K/mm3 (0.16-1.47); MONOCYTES PERCENT AUTO 2 % (4-13); Mean Corpuscular HGB Conc 32.9 g/dL (31.5-36.5); Mean Corpuscular Volume 79 fL (80-100); Mean Platelet Volume 9.7 fL (9.1-12.4); NEUTROPHILS ABSOLUTE AUTO 12.75 K/mm3 (1.96-9.15); NEUTROPHILS PERCENT AUTO 90 % (41-73); Platelet Count 254 K/mm3 (150-400); RDW Coefficient Variation 14.6 % (11.7-14.2); RDW Standard Deviation 42.2 fL (35.1-46.3); Red Blood Cell Count 4.81 M/mm3 (3.80-5.20); White Blood Cell Count 14.11 K/mm3 (4.00-11.30)
[2019-07-31 05:46] LABS: Alanine Aminotransfer (ALT/SGP 15 U/L (12-78); Albumin, Blood 2.9 g/dL (3.4-5.0); Albumin/Globulin Ratio 0.7 (0.8-1.8); Alk Phos 91 U/L (50-136); Anion Gap 5 mmol/L (6-16); Aspartate Aminotrans (AST/SGOT 12 U/L (12-37); Bilirubin, Total 0.5 mg/dL (0.1-1.0); Blood Urea Nitrogen 16 mg/dL (8-24); Bun/Creatinine Ratio 29.3 (12.0-20.0); CO2, Blood 26 mmol/L (21-32); Calcium, Blood 9.2 mg/dL (8.5-10.1); Chloride, Blood 109 mmol/L (98-108); Creatinine, Blood 0.55 mg/dL (0.40-1.00); Globulin, Blood 3.9 g/dL (2.2-4.0); Glomerular Filtration Rate >60 (60-); Glucose, Blood 199 mg/dL (70-99); Potassium, Blood 3.5 mmol/L (3.5-5.5); Sodium, Blood 140 mmol/L (136-145); Total Protein, Blood 6.8 g/dL (6.4-8.2)
--- NOTE | 2019-07-31 07:20 | NUR ---
SHIFT SUMMARY PATIENT ALERT AND ORIENTED. IV IN LEFT ARM PATENT AND INFUSING WITH NORMAL SALINE AT 75 ML/HR. PATIENT WORE 2.5 LITERS O2 VIA NASAL CANULA OVERNIGHT TO AID WITH HER SLEEP APNEA. BED IN LOWEST POSITION WITH WHEELS LOCKED. CALL LIGHT WITHIN REACH. REPORT GIVEN TO ONCOMING RN.
--- NOTE | 2019-07-31 17:00 | NUR ---
SHIFT SUMMARY PT A&O X4 AND INDEPENTENT IN THE ROOM, PT ON RA AND ONLY REQUIRES 2.5L OF N/C AT NIGHT. PT CESAR PAIN DURING THIS SHIFT. PT TOLORATED MEALS THIS SHIFT. PT HAS CALL LIGHT WITH IN REACH AND WILL REPORT NOC RN.
[2019-08-01 05:01] LABS: BASOPHILS ABSOLUTE AUTO 0.02 K/mm3 (0.00-0.23); BASOPHILS PERCENT AUTO 0 % (0-2); EOSINOPHILS PERCENT AUTO 0 % (0-6); Hematocrit 38.9 % (33.0-51.0); Hemoglobin 12.8 g/dL (11.5-16.0); IMMATURE GRAN ABSOLUTE AUTO 0.24 K/mm3 (0.00-0.10); IMMATURE GRAN PERCENT AUTO 1 % (0-1); LYMPHOCYTES ABSOLUTE AUTO 1.07 K/mm3 (0.84-5.20); LYMPHOCYTES PERCENT AUTO 5 % (21-46); MONOCYTES ABSOLUTE AUTO 0.67 K/mm3 (0.16-1.47); MONOCYTES PERCENT AUTO 3 % (4-13); Mean Corpuscular HGB 26.2 pg (26.0-34.0); Mean Corpuscular HGB Conc 32.9 g/dL (31.5-36.5); Mean Corpuscular Volume 80 fL (80-100); Mean Platelet Volume 9.2 fL (9.1-12.4); NEUTROPHILS ABSOLUTE AUTO 20.03 K/mm3 (1.96-9.15); NEUTROPHILS PERCENT AUTO 91 % (41-73); Platelet Count 292 K/mm3 (150-400); RDW Coefficient Variation 14.9 % (11.7-14.2); RDW Standard Deviation 43.1 fL (35.1-46.3); Red Blood Cell Count 4.88 M/mm3 (3.80-5.20); White Blood Cell Count 22.03 K/mm3 (4.00-11.30)
--- NOTE | 2019-08-01 06:41 | NUR ---
SHIFT SUMMARY PATIENT ALERT AND ORIENTED, INDEPENDENT GETTING UP AND WALKING AROUND HER ROOM. SHE IS CURRENTLY ON 2.5 LITERS O2 VIA NASAL CANULA. IV PATENT AND INFUSING WITH NORMAL SALINE AT 75 ML/HR. IV IN RIGHT FOREARM REMOVED AND NEW IV PLACED IN HER LEFT SHOULDER BY MARÍA ELENA LINDSEY. BED IN LOWEST POSITION WITH WHEELS LOCKED. CALL LIGHT AND BELONGINGS WITHIN REACH. REPORT GIVEN TO ONCISABEL LANIER.
[2019-08-01] MEDS ORDERED: BENZ100A PO (16:25)
[2019-08-01] MEDS ORDERED: MUCUS ER600 M1 PO (16:27)
[2019-08-01] MEDS ORDERED: ALBU90OI INH (16:28)
[2019-08-01] MEDS ORDERED: Doxycycline Mo100 M1 PO (16:30)
[2019-08-01] MEDS ORDERED: METPRE2 PO (16:30)
--- NOTE | 2019-08-01 16:58 | NUR ---
PT DISCHARGED PT DISCHARGED WITH NO CHANGES IN ASSESSMENT PRIOR TO DC. PT & DAUGHTER EDUCATED ON DC INSTRUCTIONS AND FOLLOW UP APPOINTMENTS. BOTH DENIES NEED FOR FURTHER EDUCATION. PT WHEELED OUT BY AIDE AND DRIVEN HOME BY DAUGHTER.
== END 2019-08-01 16:47 | disposition home or self-care (01) | DRG 191 ==
LOC: ER 10:24 → MEDS 14:05
PROVIDERS: Emergency Medicine; Student in an Organized Health Care Education/Training Program; ADMIT Family Medicine
DX: J44.1 Chronic obstructive pulmonary disease with (acute) exacerbation (principal); I48.20 Chronic atrial fibrillation, unspecified; I50.32 Chronic diastolic (congestive) heart failure; I11.0 Hypertensive heart disease with heart failure; E78.5 Hyperlipidemia, unspecified; K21.9 Gastro-esophageal reflux disease without esophagitis; G47.33 Obstructive sleep apnea (adult) (pediatric); E11.9 Type 2 diabetes mellitus without complications; R91.8 Other nonspecific abnormal finding of lung field; F17.200 Nicotine dependence, unspecified, uncomplicated; Z88.1 Allergy status to other antibiotic agents; Z88.0 Allergy status to penicillin; Z88.8 Allergy status to other drugs, medicaments and biological substances; Z79.899 Other long term (current) drug therapy
CPT/HCPCS: 0099U; 36415; 36600; 71045; 80053; 82803; 82947; 85025; 93005; 93010; 94640; 94760; 96374; 99285-25; A9270; A9270-GY; J2920; J2930; J7030

== ENCOUNTER → 2021-06-16 | Outpatient (CLI) | payer MEDICARE, OTHER ==
[~2021-06-16] MED LIST changes: +ALBU90OI INH; +BENZ100A PO; +CLON.1 PO; +Doxycycline Mo100 M1 PO; +MUCUS ER600 M1 PO
[2021-06-16 15:06] LABS: BASOPHILS ABSOLUTE AUTO 0.04 K/mm3 (0.00-0.23); BASOPHILS PERCENT AUTO 1 % (0-2); EOSINOPHILS ABSOLUTE AUTO 0.09 K/mm3 (0.00-0.68); EOSINOPHILS PERCENT AUTO 1 % (0-6); IMMATURE GRAN ABSOLUTE AUTO 0.03 K/mm3 (0.00-0.10); IMMATURE GRAN PERCENT AUTO 1 % (0-1); LYMPHOCYTES ABSOLUTE AUTO 0.68 K/mm3 (0.84-5.20); LYMPHOCYTES PERCENT AUTO 10 % (21-46); MONOCYTES ABSOLUTE AUTO 0.68 K/mm3 (0.16-1.47); MONOCYTES PERCENT AUTO 10 % (4-13); Mean Corpuscular HGB 25.5 pg (26.0-34.0); Mean Corpuscular HGB Conc 32.5 g/dL (31.5-36.5); Mean Corpuscular Volume 79 fL (80-100); Mean Platelet Volume 9.4 fL (9.1-12.4); NEUTROPHILS PERCENT AUTO 77 % (41-73); Platelet Count 235 K/mm3 (150-400); RDW Coefficient Variation 15.1 % (11.7-14.2); RDW Standard Deviation 43.2 fL (35.1-46.3); Red Blood Cell Count 5.09 M/mm3 (3.80-5.20); White Blood Cell Count 6.62 K/mm3 (4.00-11.30)
[2021-06-16 15:20] LABS: Alanine Aminotransfer (ALT/SGP 21 U/L (12-78); Albumin, Blood 3.2 g/dL (3.4-5.0); Alk Phos 104 U/L (40-126); Anion Gap 10 mmol/L (6-16); Aspartate Aminotrans (AST/SGOT 9 U/L (12-37); Bilirubin, Total 0.3 mg/dL (0.1-1.0); Blood Urea Nitrogen 9 mg/dL (8-24); Bun/Creatinine Ratio 12.7 (12.0-20.0); CO2, Blood 28 mmol/L (21-32); Calcium, Blood 8.9 mg/dL (8.5-10.1); Chloride, Blood 103 mmol/L (98-108); Creatinine, Blood 0.71 mg/dL (0.40-1.00); Globulin, Blood 3.3 g/dL (2.2-4.0); Glomerular Filtration Rate >60 (60-); Glucose, Blood 95 mg/dL (70-99); Potassium, Blood 3.8 mmol/L (3.5-5.5); Sodium, Blood 141 mmol/L (136-145); Total Protein, Blood 6.5 g/dL (6.4-8.2)
== END | disposition home or self-care (01) ==
LOC: LAB SHORT 14:59
PROVIDERS: Physician Assistant
DX: R06.00 Dyspnea, unspecified (principal)
CPT/HCPCS: 80053; 83880; 84484; 85025

== ENCOUNTER → 2021-09-02 | Outpatient (CLI) | payer MEDICARE, OTHER | LOC: LAB SHORT 07:36 → PLD 07:36 | DX: Z03.89 Encounter for observation for other suspected diseases and conditions ruled out (principal) | CPT/HCPCS: 88342 ==

== ENCOUNTER 2021-10-24 11:16 | Emergency (ER) | payer MEDICARE, OTHER ==
[~2021-10-24] VITALS: Ht 162.6 cm; Wt 91.2 kg
[2021-10-24] MEDS ORDERED: Bactrim Ds Tab1 EACH PO (11:54)
[2021-10-24] MEDS ORDERED: CEPH500 PO (11:54)
== END 2021-10-24 12:00 | disposition home or self-care (01) ==
LOC: ER 11:16
DX: L03.116 Cellulitis of left lower limb (principal); L02.416 Cutaneous abscess of left lower limb; I10 Essential (primary) hypertension; J44.9 Chronic obstructive pulmonary disease, unspecified; E11.9 Type 2 diabetes mellitus without complications; K21.9 Gastro-esophageal reflux disease without esophagitis; F32.A Depression, unspecified; F17.210 Nicotine dependence, cigarettes, uncomplicated; Z88.0 Allergy status to penicillin; Z88.1 Allergy status to other antibiotic agents; Z88.8 Allergy status to other drugs, medicaments and biological substances; Z79.01 Long term (current) use of anticoagulants; Z79.899 Other long term (current) drug therapy
CPT/HCPCS: 99281

== ENCOUNTER 2022-01-18 10:54 | Emergency (ER) | payer MEDICARE, OTHER ==
[~2022-01-18] VITALS: Ht 162.6 cm; Wt 93.4 kg
[~2022-01-18 10:54] MED LIST changes: +Bactrim Ds Tab1 EACH PO; +CEPH500 PO
[2022-01-18] MEDS ORDERED: Norco 5-325 Ta1 EACH PO (11:42)
== END 2022-01-18 12:50 | disposition home or self-care (01) ==
LOC: ER 10:54
DX: L02.31 Cutaneous abscess of buttock (principal); J44.9 Chronic obstructive pulmonary disease, unspecified; E11.9 Type 2 diabetes mellitus without complications; I10 Essential (primary) hypertension; K21.9 Gastro-esophageal reflux disease without esophagitis; F17.210 Nicotine dependence, cigarettes, uncomplicated; Z88.0 Allergy status to penicillin; Z88.1 Allergy status to other antibiotic agents; Z79.84 Long term (current) use of oral hypoglycemic drugs; Z79.52 Long term (current) use of systemic steroids; Z79.899 Other long term (current) drug therapy; Z79.01 Long term (current) use of anticoagulants
CPT/HCPCS: 10061; 87070; 87075; 87076; 87205; 99283-25; A9270

== ENCOUNTER 2022-09-30 11:12 | Emergency (ER) | payer MEDICARE, OTHER ==
[~2022-09-30] VITALS: Ht 165.1 cm; Wt 92.5 kg
[~2022-09-30 11:12] MED LIST changes: +Flagyl500 MG PO; +Norco 5-325 Ta1 EACH PO
[2022-09-30 11:59] LABS: BASOPHILS ABSOLUTE AUTO 0.06 K/mm3 (0.00-0.23); BASOPHILS PERCENT AUTO 1 % (0-2); EOSINOPHILS ABSOLUTE AUTO 0.18 K/mm3 (0.00-0.68); EOSINOPHILS PERCENT AUTO 2 % (0-6); Hematocrit 38.8 % (33.0-51.0); Hemoglobin 12.5 g/dL (11.5-16.0); IMMATURE GRAN ABSOLUTE AUTO 0.03 K/mm3 (0.00-0.10); IMMATURE GRAN PERCENT AUTO 0 % (0-1); LYMPHOCYTES ABSOLUTE AUTO 2.05 K/mm3 (0.84-5.20); LYMPHOCYTES PERCENT AUTO 22 % (21-46); MONOCYTES ABSOLUTE AUTO 0.57 K/mm3 (0.16-1.47); MONOCYTES PERCENT AUTO 6 % (4-13); Mean Corpuscular HGB 26.2 pg (26.0-34.0); Mean Corpuscular HGB Conc 32.2 g/dL (31.5-36.5); Mean Corpuscular Volume 81 fL (80-100); Mean Platelet Volume 9.8 fL (9.1-12.4); NEUTROPHILS ABSOLUTE AUTO 6.39 K/mm3 (1.96-9.15); NEUTROPHILS PERCENT AUTO 69 % (41-73); Platelet Count 278 K/mm3 (150-400); RDW Coefficient Variation 13.6 % (11.7-14.2); RDW Standard Deviation 40.4 fL (35.1-46.3); Red Blood Cell Count 4.78 M/mm3 (3.80-5.20); White Blood Cell Count 9.28 K/mm3 (4.00-11.30)
[2022-09-30 12:18] LABS: Albumin/Globulin Ratio 0.8 (0.8-1.8); Bilirubin, Total 0.3 mg/dL (0.1-1.0); Bun/Creatinine Ratio 19.8 (12.0-20.0); Creatinine, Blood 0.66 mg/dL (0.40-1.00); Globulin, Blood 3.7 g/dL (2.2-4.0); Potassium, Blood 3.7 mmol/L (3.5-5.5); Total Protein, Blood 6.7 g/dL (6.4-8.2)
[2022-09-30] MEDS ORDERED: DOXY100 PO (14:14)
[2022-09-30] MEDS ORDERED: DEXA2 PO (14:14)
[2022-09-30 15:00] VITALS: BP 122/64
== END 2022-09-30 15:17 | disposition home or self-care (01) ==
LOC: ER 11:12
PROVIDERS: Student in an Organized Health Care Education/Training Program
DX: J44.1 Chronic obstructive pulmonary disease with (acute) exacerbation (principal); R55 Syncope and collapse; Z88.0 Allergy status to penicillin; Z88.1 Allergy status to other antibiotic agents; Z88.8 Allergy status to other drugs, medicaments and biological substances; Z79.899 Other long term (current) drug therapy; E11.9 Type 2 diabetes mellitus without complications; I10 Essential (primary) hypertension; K21.9 Gastro-esophageal reflux disease without esophagitis; F17.210 Nicotine dependence, cigarettes, uncomplicated
CPT/HCPCS: 36415; 71045; 80053; 83880; 84484; 85025; 93005; 93010; 94640; 94664; 99285-25; A9270; J7030

== ENCOUNTER → 2023-01-19 | Outpatient (CLI) | payer MEDICARE, OTHER ==
[~2023-01-19] MED LIST changes: +DEXA2 PO
[2023-01-19 14:37] LABS: BASOPHILS ABSOLUTE AUTO 0.06 K/mm3 (0.00-0.23); BASOPHILS PERCENT AUTO 1 % (0-2); EOSINOPHILS ABSOLUTE AUTO 0.12 K/mm3 (0.00-0.68); EOSINOPHILS PERCENT AUTO 1 % (0-6); Hematocrit 40.6 % (33.0-51.0); Hemoglobin 12.8 g/dL (11.5-16.0); IMMATURE GRAN ABSOLUTE AUTO 0.04 K/mm3 (0.00-0.10); IMMATURE GRAN PERCENT AUTO 0 % (0-1); LYMPHOCYTES ABSOLUTE AUTO 1.85 K/mm3 (0.84-5.20); LYMPHOCYTES PERCENT AUTO 16 % (21-46); MONOCYTES ABSOLUTE AUTO 0.81 K/mm3 (0.16-1.47); MONOCYTES PERCENT AUTO 7 % (4-13); Mean Corpuscular HGB 24.2 pg (26.0-34.0); Mean Corpuscular HGB Conc 31.5 g/dL (31.5-36.5); Mean Corpuscular Volume 77 fL (80-100); Mean Platelet Volume 10.4 fL (9.1-12.4); NEUTROPHILS ABSOLUTE AUTO 8.71 K/mm3 (1.96-9.15); NEUTROPHILS PERCENT AUTO 75 % (41-73); Platelet Count 348 K/mm3 (150-400); RDW Coefficient Variation 15.6 % (11.7-14.2); RDW Standard Deviation 43.4 fL (35.1-46.3); Red Blood Cell Count 5.29 M/mm3 (3.80-5.20); White Blood Cell Count 11.59 K/mm3 (4.00-11.30)
[2023-01-19 14:44] LABS: Alanine Aminotransfer (ALT/SGP 21 U/L (12-78); Albumin, Blood 3.5 g/dL (3.4-5.0); Albumin/Globulin Ratio 0.8 (0.8-1.8); Alk Phos 109 U/L (50-136); Anion Gap 4 mmol/L (6-16); Aspartate Aminotrans (AST/SGOT 8 U/L (12-37); Bilirubin, Total 0.4 mg/dL (0.1-1.0); Blood Urea Nitrogen 22 mg/dL (8-24); Bun/Creatinine Ratio 30.4 (12.0-20.0); CHOL/HDL RATIO 4.1; CO2, Blood 29 mmol/L (21-32); Calcium, Blood 9.3 mg/dL (8.5-10.1); Chloride, Blood 106 mmol/L (98-108); Cholesterol 183 mg/dL (50-200); Creatinine, Blood 0.72 mg/dL (0.40-1.00); Globulin, Blood 4.4 g/dL (2.2-4.0); Glomerular Filtration Rate 86 (60-); Glucose, Blood 127 mg/dL (70-99); HDL Cholesterol 45 mg/dL (>39); LDL/HDL RATIO 2.3; Low Density Lipoprotein Chol 105 mg/dL (0-110); Potassium, Blood 3.6 mmol/L (3.5-5.5); Sodium, Blood 139 mmol/L (136-145); Total Protein, Blood 7.9 g/dL (6.4-8.2); Triglycerides 164 mg/dL (30-160); Very Low Density Lipoprot Chol 32 mg/dL (6-32)
[2023-01-19 15:38] LABS: Creatinine, Urine Random 9.48 mg/dL (27.00-270.00)
[2023-01-19 15:53] LABS: Microalb/Creat Ratio UR, Rand Unable to Calculate mg/g (0.000-30.000); Microalbumin, Random Urine <5.000 mg/L (0.000-20.000)
== END | disposition home or self-care (01) ==
LOC: LAB SHORT 12:23 → LAB 12:23
PROVIDERS: Physician Assistant Medical
DX: E78.2 Mixed hyperlipidemia (principal); E11.9 Type 2 diabetes mellitus without complications
CPT/HCPCS: 80053; 80061; 82043; 82570; 83036; 85025

== ENCOUNTER 2023-02-05 14:11 | Emergency (ER) | payer MEDICARE, OTHER ==
[~2023-02-05] VITALS: Ht 162.6 cm; Wt 92.5 kg
[2023-02-05] MEDS ORDERED: LOSA50 PO (14:26)
[2023-02-05] MEDS ORDERED: SPIRONOLACTONE25 MG PO (14:28)
[2023-02-05] MEDS ORDERED: SOAANZ20 M3 PO (14:29)
[2023-02-05 14:38] LABS: BASOPHILS ABSOLUTE AUTO 0.08 K/mm3 (0.00-0.23); BASOPHILS PERCENT AUTO 1 % (0-2); EOSINOPHILS ABSOLUTE AUTO 0.21 K/mm3 (0.00-0.68); EOSINOPHILS PERCENT AUTO 2 % (0-6); Hematocrit 37.8 % (33.0-51.0); Hemoglobin 12.1 g/dL (11.5-16.0); IMMATURE GRAN ABSOLUTE AUTO 0.03 K/mm3 (0.00-0.10); IMMATURE GRAN PERCENT AUTO 0 % (0-1); LYMPHOCYTES PERCENT AUTO 20 % (21-46); MONOCYTES ABSOLUTE AUTO 0.88 K/mm3 (0.16-1.47); MONOCYTES PERCENT AUTO 8 % (4-13); Mean Corpuscular HGB 24.1 pg (26.0-34.0); Mean Corpuscular Volume 75 fL (80-100); Mean Platelet Volume 9.7 fL (9.1-12.4); NEUTROPHILS ABSOLUTE AUTO 7.76 K/mm3 (1.96-9.15); NEUTROPHILS PERCENT AUTO 70 % (41-73); Platelet Count 346 K/mm3 (150-400); RDW Coefficient Variation 15.4 % (11.7-14.2); RDW Standard Deviation 41.9 fL (35.1-46.3); Red Blood Cell Count 5.02 M/mm3 (3.80-5.20); White Blood Cell Count 11.16 K/mm3 (4.00-11.30)
[2023-02-05 14:49] LABS: Albumin, Blood 3.2 g/dL (3.4-5.0); Albumin/Globulin Ratio 0.9 (0.8-1.8); Bilirubin, Total 0.2 mg/dL (0.1-1.0); Calcium, Blood 8.7 mg/dL (8.5-10.1); Creatinine, Blood 0.84 mg/dL (0.40-1.00); Globulin, Blood 3.6 g/dL (2.2-4.0); Potassium, Blood 3.8 mmol/L (3.5-5.5); Total Protein, Blood 6.8 g/dL (6.4-8.2)
[2023-02-05 17:34] VITALS: BP 125/81
== END 2023-02-05 17:38 | disposition home or self-care (01) ==
LOC: ER 14:11
PROVIDERS: Emergency Medicine
DX: R07.9 Chest pain, unspecified (principal); Z88.0 Allergy status to penicillin; Z88.8 Allergy status to other drugs, medicaments and biological substances; Z88.1 Allergy status to other antibiotic agents; Z79.899 Other long term (current) drug therapy; J44.9 Chronic obstructive pulmonary disease, unspecified; E11.9 Type 2 diabetes mellitus without complications; I11.0 Hypertensive heart disease with heart failure; K21.9 Gastro-esophageal reflux disease without esophagitis; I48.91 Unspecified atrial fibrillation; I50.30 Unspecified diastolic (congestive) heart failure; G47.33 Obstructive sleep apnea (adult) (pediatric); F17.210 Nicotine dependence, cigarettes, uncomplicated
CPT/HCPCS: 71046; 80053; 83880; 84484; 85025; 93005; 93010; 99285-25

== ENCOUNTER 2023-09-30 13:08 | Emergency (ER) | payer MEDICARE, OTHER ==
[~2023-09-30] VITALS: Ht 162.6 cm; Wt 94.8 kg
[~2023-09-30 13:08] MED LIST changes: +LOSA50 PO; +SOAANZ20 M3 PO; +SPIRONOLACTONE25 MG PO
[2023-09-30 13:45] LABS: BASOPHILS PERCENT AUTO 1 % (0-2); EOSINOPHILS ABSOLUTE AUTO 0.25 K/mm3 (0.00-0.68); EOSINOPHILS PERCENT AUTO 2 % (0-6); Hematocrit 36.8 % (33.0-51.0); Hemoglobin 11.9 g/dL (11.5-16.0); IMMATURE GRAN ABSOLUTE AUTO 0.06 K/mm3 (0.00-0.10); IMMATURE GRAN PERCENT AUTO 0 % (0-1); LYMPHOCYTES ABSOLUTE AUTO 2.47 K/mm3 (0.84-5.20); LYMPHOCYTES PERCENT AUTO 18 % (21-46); MONOCYTES ABSOLUTE AUTO 0.91 K/mm3 (0.16-1.47); MONOCYTES PERCENT AUTO 7 % (4-13); Mean Corpuscular HGB Conc 32.3 g/dL (31.5-36.5); Mean Corpuscular Volume 81 fL (80-100); Mean Platelet Volume 9.8 fL (9.1-12.4); NEUTROPHILS ABSOLUTE AUTO 9.72 K/mm3 (1.96-9.15); NEUTROPHILS PERCENT AUTO 72 % (41-73); Platelet Count 316 K/mm3 (150-400); RDW Coefficient Variation 14.8 % (11.7-14.2); RDW Standard Deviation 43.4 fL (35.1-46.3); Red Blood Cell Count 4.57 M/mm3 (3.80-5.20); White Blood Cell Count 13.51 K/mm3 (4.00-11.30)
[2023-09-30 14:03] LABS: Albumin, Blood 2.9 g/dL (3.4-5.0); Albumin/Globulin Ratio 0.7 (0.8-1.8); Bilirubin, Total 0.3 mg/dL (0.1-1.0); Calcium, Blood 8.8 mg/dL (8.5-10.1); Creatinine, Blood 0.79 mg/dL (0.40-1.00); Potassium, Blood 3.5 mmol/L (3.5-5.5); Total Protein, Blood 6.9 g/dL (6.4-8.2)
[2023-09-30 16:00] VITALS: BP 132/84
== END 2023-09-30 16:16 | disposition home or self-care (01) ==
LOC: ER 13:08
PROVIDERS: Emergency Medicine
DX: R07.9 Chest pain, unspecified (principal); J44.9 Chronic obstructive pulmonary disease, unspecified; E11.9 Type 2 diabetes mellitus without complications; K21.9 Gastro-esophageal reflux disease without esophagitis; I48.91 Unspecified atrial fibrillation; I11.0 Hypertensive heart disease with heart failure; I50.30 Unspecified diastolic (congestive) heart failure; G47.33 Obstructive sleep apnea (adult) (pediatric); F17.210 Nicotine dependence, cigarettes, uncomplicated
CPT/HCPCS: 71046; 80053; 83690; 84484; 85025; 93005; 93010; 99285-25

== ENCOUNTER 2024-04-01 12:12 | Emergency (ER) | payer MEDICARE, OTHER ==
[~2024-04-01] VITALS: Ht 162.6 cm; Wt 91.6 kg
[2024-04-01] MEDS ORDERED: Ondansetron HCl 2 MG / ML 2ML Vial IV PRN (12:40)
[2024-04-01 12:54] LABS: BASOPHILS ABSOLUTE AUTO 0.03 K/mm3 (0.00-0.23); BASOPHILS PERCENT AUTO 0 % (0-2); EOSINOPHILS ABSOLUTE AUTO 0.16 K/mm3 (0.00-0.68); EOSINOPHILS PERCENT AUTO 1 % (0-6); Hematocrit 35.9 % (33.0-51.0); IMMATURE GRAN ABSOLUTE AUTO 0.41 K/mm3 (0.00-0.10); IMMATURE GRAN PERCENT AUTO 2 % (0-1); LYMPHOCYTES ABSOLUTE AUTO 1.93 K/mm3 (0.84-5.20); LYMPHOCYTES PERCENT AUTO 11 % (21-46); MONOCYTES ABSOLUTE AUTO 1.35 K/mm3 (0.16-1.47); MONOCYTES PERCENT AUTO 8 % (4-13); Mean Corpuscular HGB 23.3 pg (26.0-34.0); Mean Corpuscular HGB Conc 30.6 g/dL (31.5-36.5); Mean Corpuscular Volume 76 fL (80-100); Mean Platelet Volume 10.2 fL (9.1-12.4); NEUTROPHILS ABSOLUTE AUTO 13.73 K/mm3 (1.96-9.15); NEUTROPHILS PERCENT AUTO 78 % (41-73); Platelet Count 374 K/mm3 (150-400); RDW Coefficient Variation 16.1 % (11.7-14.2); RDW Standard Deviation 44.1 fL (35.1-46.3); Red Blood Cell Count 4.73 M/mm3 (3.80-5.20); White Blood Cell Count 17.61 K/mm3 (4.00-11.30)
[2024-04-01 13:25] LABS: Albumin, Blood 2.9 g/dL (3.4-5.0); Albumin/Globulin Ratio 0.9 (0.8-1.8); Bilirubin, Total 0.3 mg/dL (0.1-1.0); Bun/Creatinine Ratio 27.9 (12.0-20.0); Calcium, Blood 8.5 mg/dL (8.5-10.1); Creatinine, Blood 0.72 mg/dL (0.40-1.00); Globulin, Blood 3.2 g/dL (2.2-4.0); Potassium, Blood 3.7 mmol/L (3.5-5.5); Total Protein, Blood 6.1 g/dL (6.4-8.2)
[2024-04-01 13:30] VITALS: BP 144/54
[2024-04-01] MEDS ORDERED: Famotidine 20 MG Tab PO ONE (14:30)
[2024-04-01] MEDS ORDERED: Mag Hydrox/AL Hydrox/Simeth 30 ML UDC PO ONE (14:30)
[2024-04-01] MEDS ORDERED: FLUTICASONE-SA1 EAC8 INH (14:31)
== END 2024-04-01 14:25 | disposition home or self-care (01) ==
LOC: ER 12:12
PROVIDERS: Student in an Organized Health Care Education/Training Program
DX: R10.13 Epigastric pain (principal); J44.9 Chronic obstructive pulmonary disease, unspecified; E11.9 Type 2 diabetes mellitus without complications; I48.91 Unspecified atrial fibrillation; F17.210 Nicotine dependence, cigarettes, uncomplicated; Z88.0 Allergy status to penicillin; Z88.1 Allergy status to other antibiotic agents; Z88.8 Allergy status to other drugs, medicaments and biological substances; Z79.899 Other long term (current) drug therapy; Z79.01 Long term (current) use of anticoagulants
CPT/HCPCS: 80053; 84484; 85025; 93005; 93010; 99285-25